=== PATIENT | female | born 1985 | race Caucasian/White ===

== ENCOUNTER 2019-03-04 16:03 | Emergency (ER) | payer OTHER ==
[2019-03-04 16:29] VITALS: BP 145/86
--- NOTE | 2019-03-04 17:01 | ER Document Report ---
ED Medical Screen (RME) - General Chief Complaint: Allergic Reaction Stated Complaint: CHEST PAIN Time Seen by Provider: 03/04/19 16:58 Primary Care Provider: CONSUELO BUITRAGO MD [Primary Care Provider] - Follow up as needed Mode of Arrival: Ambulatory Information source: Patient Notes: 33-year-old female presented to ED for complaint of chest pain to the mid to the left side of her chest. Patient has tenderness to palpation. She did get an allergy shot the third of a series in her left arm around 115. 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 She states she called the client care representative and they said to call the PCM. The PCM was off today they nurse in the office said to come to the emergency room. Patient states that her last bowel movement was Sunday and that was a very painful. Patient has hyperactive bowel sounds with clear lung sounds. Patient does have a history of anxiety. I have greeted and performed a rapid initial assessment of this patient. A comprehensive ED assessment and evaluation of the patient, analysis of test results and completion of medical decision making process will be conducted by an additional ED providers. Dictation of this chart was performed using voice recognition software; therefore, there may be some unintended grammatical errors. TRAVEL OUTSIDE OF THE [place] IN LAST 30 DAYS: No - Related Data Allergies/Adverse Reactions: No Known Drug Allergies Allergy (Verified 03/04/19 16:24) Past Medical History Renal/ Medical History: Denies: Hx Peritoneal Dialysis - Immunizations Hx Diphtheria, Pertussis, Tetanus Vaccination: Yes Physical Exam - Vital signs Vitals: Temp Pulse Resp BP Pulse Ox 98.0 F 70 20 145/86 H 97 03/04/19 16:28 03/04/19 16:28 03/04/19 16:28 03/04/19 16:28 03/04/19 16:28 Course - Vital Signs Vital signs: Temp Pulse Resp BP Pulse Ox 98.0 F 70 20 145/86 H 97 03/04/19 16:28 03/04/19 16:28 03/04/19 16:28 03/04/19 16:28 03/04/19 16:28 Doctor's Discharge - Discharge Referrals: CONSUELO BUITRAGO MD [Primary Care Provider] - Follow up as needed
[2019-03-04 17:31] LABS: ABSOLUTE BASOPHILS # (AUTO) 0.1 10^3/uL (0.0-0.2); ABSOLUTE EOSINOPHILS # (AUTO) 0.2 10^3/uL (0.0-0.6); ABSOLUTE LYMPHOCYTES (AUTO) 2.7 10^3/uL (0.5-4.7); ABSOLUTE MONOCYTES (AUTO) 0.5 10^3/uL (0.1-1.4); ABSOLUTE NEUT (AUTO) 3.9 10^3/uL (1.7-8.2); BASOPHILS % (AUTO) 0.9 % (0-2); EOSINOPHILS % (AUTO) 2.9 % (0-6); HEMATOCRIT 41.5 % (36.0-47.0); HEMOGLOBIN 13.6 g/dL (12.0-15.5); LYMPHOCYTES % (AUTO) 36.4 % (13-45); MEAN CORPUSCULAR HEMOGLOBIN 26.8 pg (27.0-33.4); MEAN CORPUSCULAR HGB CONC 32.8 g/dL (32.0-36.0); MEAN CORPUSCULAR VOLUME 82 fl (80-97); MONOCYTES % (AUTO) 7.2 % (3-13); PLATELET COUNT 315 10^3/uL (150-450); RED BLOOD COUNT 5.07 10^6/uL (3.72-5.28); RED CELL DISTRIBUTION WIDTH 15.3 % (11.5-14.0); SEGMENTED NEUTROPHILS % (AUTO) 52.6 % (42-78); TOTAL CELLS COUNTED % (AUTO) 100 %; WHITE BLOOD COUNT 7.3 10^3/uL (4.0-10.5)
[2019-03-04 17:55] LABS: ALANINE AMINOTRANSFERASE 35 U/L (9-52); ALBUMIN 4.5 g/dL (3.5-5.0); ALKALINE PHOSPHATASE 116 U/L (38-126); ANION GAP 14 (5-19); ASPARTATE AMINO TRANSFERASE 33 U/L (14-36); BILIRUBIN,DIRECT 0.2 mg/dL (0.0-0.4); BILIRUBIN,TOTAL 0.3 mg/dL (0.2-1.3); BLOOD UREA NITROGEN 11 mg/dL (7-20); CARBON DIOXIDE 27 mmol/L (22-30); CHLORIDE 103 mmol/L (98-107); GLUCOSE 108 mg/dL (75-110); LIPASE 231.5 U/L (23-300); POTASSIUM 4.1 mmol/L (3.6-5.0); SODIUM 143.7 mmol/L (137-145); TOTAL PROTEIN 8.1 g/dL (6.3-8.2)
--- NOTE | 2019-03-04 17:55 | RADIOLOGY REPORT (SQ) ---
EXAM DESCRIPTION: CHEST 2 VIEWS COMPLETED DATE/TIME: 03/04/2019 5:09 pm REASON FOR STUDY: chest pain to left arm allergy shot around 1330 COMPARISON: None. EXAM PARAMETERS: NUMBER OF VIEWS: two views TECHNIQUE: Digital Frontal and Lateral radiographic views of the chest acquired. RADIATION DOSE: NA LIMITATIONS: none FINDINGS: LUNGS AND PLEURA: No opacities, masses or pneumothorax. No pleural effusion. MEDIASTINUM AND HILAR STRUCTURES: No masses or contour abnormalities. HEART AND VASCULAR STRUCTURES: Heart normal size. No evidence for failure. BONES: No acute findings. HARDWARE: None in the chest. OTHER: No other significant finding. IMPRESSION: NO ACUTE RADIOGRAPHIC FINDING IN THE CHEST. TECHNICAL DOCUMENTATION: JOB ID: [id number] All Rights Reserved Reading location - IP/workstation name: [email or web address]
[2019-03-04 17:57] LABS: AMORPHOUS SEDIMENT,URINE TRACE /HPF; APPEARANCE,URINE CLOUDY; BILIRUBIN,URINE NEGATIVE (NEGATIVE); COLOR,URINE YELLOW; GLUCOSE, URINE NEGATIVE (NEGATIVE); KETONES,URINE NEGATIVE (NEGATIVE); LEUKOCYTE ESTERASE,URINE NEGATIVE (NEGATIVE); NITRITE,URINE NEGATIVE (NEGATIVE); PROTEIN,URINE NEGATIVE (NEGATIVE); URINE SPECIFIC GRAVITY 1.015; UROBILINOGEN,URINE NEGATIVE mg/dL (<2.0)
[2019-03-04 18:07] LABS: CREATINE KINASE MB < 0.22 ng/mL (<4.55); TROPONIN I < 0.012 ng/mL
--- NOTE | 2019-03-04 20:11 | ER Document Report ---
ED General - General Chief Complaint: Allergic Reaction Stated Complaint: CHEST PAIN Time Seen by Provider: 03/04/19 16:58 Primary Care Provider: CONSUELO BUITRAGO MD [NO LOCAL MD] - Follow up in 3-5 days RALPH KEY MD [ACTIVE STAFF] - Follow up in 3-5 days Mode of Arrival: Ambulatory Notes: Patient is a 33-year-old female with hypothyroidism that presents to the emergency department for chief complaint of chest pain. 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 Or diaphoresis. She denies any history of DVT, PE, or CAD, denies any history of hypertension or diabetes, no family history of early coronary disease. She denies any recent travel, leg swelling or redness and denies being on any oral contraceptive pills. She states the pain is rather reproducible, and tender to palpate along the sternal junction on the left side, and all towards her ribs and shoulder. Past Medical History: Hypothyroidism, obstructive sleep apnea Past Surgical History: Cholecystectomy Social History: Denies tobacco, alcohol or drug use. Family History: Reviewed and noncontributory for presenting illness Allergies: Reviewed, see documented allergy list. REVIEW OF SYSTEMS: Other than noted above, the 12 point review of systems was reviewed with the patient and were negative, all pertinent findings are included in the HPI. PHYSICAL EXAMINATION: Vital signs reviewed, nursing noted reviewed. GENERAL: Well-appearing, well-nourished and in no acute distress. HEAD: Atraumatic, normocephalic. EYES: Eyes appear normal, extraocular movements intact, sclera anicteric, conjunctiva are normal. ENT: nares patent, oropharynx clear without exudates. Moist mucous membranes. NECK: Normal range of motion, supple without lymphadenopathy LUNGS: Breath sounds clear to auscultation bilaterally and equal. No wheezes rales or rhonchi. Patient's left costosternal junction, left chest wall and anterior shoulder are especially tender to palpation. Pain is worse with range of motion of the shoulder as well. HEART: Regular rate and rhythm without murmurs ABDOMEN: Soft, nontender, normoactive bowel sounds. No rebound, guarding, or rigidity. No masses appreciated. EXTREMITIES: Nontender, good range of motion, no pitting or edema. NEUROLOGICAL: No focal neurological deficits. Moves all extremities spontaneously Motor and sensory grossly intact on exam. PSYCH: Normal mood, normal affect. SKIN: Warm, Dry, normal turgor, no rashes or lesions noted on exposed skin TRAVEL OUTSIDE OF THE [place] IN LAST 30 DAYS: No - Related Data Allergies/Adverse Reactions: No Known Drug Allergies Allergy (Verified 03/04/19 16:24) Past Medical History - General Information source: Patient - Social History Smoking Status: Never Smoker Family History: Reviewed & Not Pertinent Patient has suicidal ideation: No Patient has homicidal ideation: No Renal/ Medical History: Denies: Hx Peritoneal Dialysis - Immunizations Hx Diphtheria, Pertussis, Tetanus Vaccination: Yes Physical Exam - Vital signs Vitals: Temp Pulse Resp BP Pulse Ox 98.0 F 70 20 145/86 H 97 03/04/19 16:28 03/04/19 16:28 03/04/19 16:28 03/04/19 16:28 03/04/19 16:28 Course - Re-evaluation Re-evalutation: Patient seen and examined vital signs reviewed. Laboratory data and/or imaging were ordered as appropriate for the patient's presenting symptoms and complaint, with consideration of any critical or life threatening conditions that may be associated with their obtained history and exam as noted above. Patient was treated with IM Toradol Results were reviewed when available and demonstrated negative troponin, unremarkable blood work, negative hCG, urine testing negative as well. Chest x- ray negative. EKG was nonischemic pattern, not tachycardic. The patient was re-evaluated and was stable, d-dimer was added, due to the pleuritic nature of the patient's pain. Evaluation was most consistent with chest wall pain, negative d-dimer, negative troponin, patient is considered a low risk patient at this time, plan on discharge to home, advised NSAIDs, and follow-up with her primary care, for pain persists or is not improving over the next 24 to 48 hours she is advised to return to the emergency department. Results were discussed with the patient at this point, after careful consideration I feel that that patient can be discharged from the emergency department, the patient was educated treatments and reasons to return to the emergency department based on their presumed diagnosis as noted above, they were advised to followup with a primary care physician in 2-3 days. Patient was agreeable to plan of care. *Note is created using voice recognition software and may contain spelling, syntax or grammatical errors. Laboratory 03/04/19 03/04/19 03/04/19 17:13 17:13 17:13 WBC 7.3 RBC 5.07 Hgb 13.6 Hct 41.5 MCV 82 MCH 26.8 L MCHC 32.8 RDW 15.3 H Plt Count 315 Seg Neutrophils % 52.6 Lymphocytes % 36.4 Monocytes % 7.2 Eosinophils % 2.9 Basophils % 0.9 Absolute Neutrophils 3.9 Absolute Lymphocytes 2.7 Absolute Monocytes 0.5 Absolute Eosinophils 0.2 Absolute Basophils 0.1 D-Dimer Sodium 143.7 Potassium 4.1 Chloride 103 Carbon Dioxide 27 Anion Gap 14 BUN 11 Creatinine 0.67 Est GFR ( Amer) > 60 Est GFR (Non-Af Amer) > 60 Glucose 108 Calcium 10.0 Total Bilirubin 0.3 Direct Bilirubin 0.2 Neonat Total Bilirubin Not Reportable Neonat Direct Bilirubin Not Reportable Neonat Indirect Bili Not Reportable AST 33 ALT 35 Alkaline Phosphatase 116 CK-MB (CK-2) Troponin I Total Protein 8.1 Albumin 4.5 Lipase 231.5 Serum HCG, Qual NEGATIVE Urine Color Urine Appearance Urine pH Ur Specific [place] Urine Protein Urine Glucose (UA) Urine Ketones Urine Blood Urine Nitrite Urine Bilirubin Urine Urobilinogen Ur Leukocyte Esterase Squamous Epi Cells Auto Amorphous Sediment Auto Urine Ascorbic Acid 03/04/19 03/04/19 03/04/19 17:13 17:13 17:13 WBC RBC Hgb Hct MCV MCH MCHC RDW Plt Count Seg Neutrophils % Lymphocytes % Monocytes % Eosinophils % Basophils % Absolute Neutrophils Absolute Lymphocytes Absolute Monocytes Absolute Eosinophils Absolute Basophils D-Dimer 0.36 Sodium Potassium Chloride Carbon Dioxide Anion Gap BUN Creatinine Est GFR ( Amer) Est GFR (Non-Af Amer) Glucose Calcium Total Bilirubin Direct Bilirubin Neonat Total Bilirubin Neonat Direct Bilirubin Neonat Indirect Bili AST ALT Alkaline Phosphatase CK-MB (CK-2) < 0.22 Troponin I < 0.012 Total Protein Albumin Lipase Serum HCG, Qual Urine Color YELLOW Urine Appearance CLOUDY Urine pH 7.0 Ur Specific [place] 1.015 Urine Protein NEGATIVE Urine Glucose (UA) NEGATIVE Urine Ketones NEGATIVE Urine Blood NEGATIVE Urine Nitrite NEGATIVE Urine Bilirubin NEGATIVE Urine Urobilinogen NEGATIVE Ur Leukocyte Esterase NEGATIVE Squamous Epi Cells Auto 1 Amorphous Sediment Auto TRACE Urine Ascorbic Acid NEGATIVE Chest X-Ray 03/04/19 16:58 IMPRESSION: NO ACUTE RADIOGRAPHIC FINDING IN THE CHEST. - Vital Signs Vital signs: Temp Pulse Resp BP Pulse Ox 98.0 F 70 20 145/86 H 97 03/04/19 16:28 03/04/19 16:28 03/04/19 16:28 03/04/19 16:28 03/04/19 16:28 - Laboratory Result Diagrams: 03/04/19 17:13 03/04/19 17:13 Laboratory results interpreted by me: 03/04/19 17:13 MCH 26.8 L RDW 15.3 H - EKG Interpretation by Me Additional EKG results interpreted by me: EKG demonstrates sinus rhythm with a ventricular rate of 84 bpm, normal axis, normal intervals, no evidence of acute ischemia in this EKG. Prior for comparison. Discharge - Discharge Clinical Impression: Chest pain Qualifiers: Chest pain type: unspecified Qualified Code(s): R07.9 - Chest pain, unspecified Condition: Stable Disposition: HOME, SELF-CARE Instructions: Chest Pain of Unclear Cause ([facility]) Additional Instructions: Please follow-up with cardiology and your primary care, please take the prescribed Motrin as directed, and if your symptoms are not improving, or worsening, do not hesitate to return to the emergency department. Your work-up today otherwise was negative, but if your symptoms again are worsening, please return to be reevaluated. Prescriptions: Ibuprofen [Motrin 600 Mg Tablet] 600 mg PO TID #15 tablet Referrals: CONSUELO BUITRAGO MD [NO LOCAL MD] - Follow up in 3-5 days RALPH KEY MD [ACTIVE STAFF] - Follow up in 3-5 days
[2019-03-04] MEDS ORDERED: KETOROLAC TROMETHAMINE 60 MG/2 ML SDV IM ONE (20:40)
--- NOTE | 2019-03-05 22:16 | EKG REPORT ---
SEVERITY:- NORMAL ECG - SINUS RHYTHM : Confirmed by: Kathrine Sullivan MD 05-Mar-2019 22:15:58
== END 2019-03-04 21:00 | disposition home or self-care (01) ==
LOC: ER 16:03
DX: R07.9 Chest pain, unspecified (principal); E03.9 Hypothyroidism, unspecified; Z90.49 Acquired absence of other specified parts of digestive tract
CPT/HCPCS: 93005; 99284; 96372; 36415; 82553; 83690; 84703; 85025; 80053; 81001; 84484; 85379; 71046; 93010; J1885